=== PATIENT | female | born 1995 | race Caucasian/White ===

== ENCOUNTER 2019-03-26 22:30 | Emergency (ER) | payer MEDICAID ==
[~2019-03-26] VITALS: Ht 149.9 cm; Wt 71.1 kg
[2019-03-26 22:48] VITALS: Ht 149.9 cm; Wt 71.1 kg
[2019-03-27] MEDS ORDERED: BACITRACIN 0.9 GM OINT TOP ONE (02:00)
[2019-03-27] MEDS ORDERED: LIDOCAINE 1% (MDV) 20 ML INJ SC ONE (02:00)
--- NOTE | 2019-03-27 02:48 | ERD ---
ER Documentation Chief Complaint Chief Complaint LAC TO FOREHEAD S/P FALL IN BATHROOM HPI This is a 23-year-old previously healthy female who is presenting with a left forehead laceration sustained after a mechanical fall in the bathroom. The patient reportedly tripped and fell and hit her head against a glass in the bathroom. She does endorse pain around the laceration, but she otherwise denies any other headache. She denies any vision changes. She denies any neck or back pain. She denies any chest pain or trouble breathing. She denies abdominal pain. She denies any focal deficits. She denies any other trauma or injury. She does not endorse any alleviating or exacerbating factors. The patient denies feeling sick recently. The patient denies fever or chills. The patient has had no headache or vision changes. The patient does not endorse neck or back pain. The patient denies lightheadedness or dizziness. The patient has had no chest pain or trouble breathing. The patient denies nausea or vomiting. The patient denies abdominal pain. The patient denies changes to bowel movements or urination. The patient has had no focal deficits. The patient has had no weakness or numbness or tingling to the face or extremities. ROS All systems reviewed and are negative except as per history of present illness. Allergies Allergies: Coded Allergies: No Known Allergy (Unverified , 03/26/19) PMhx/Soc Medical and Surgical Hx: pt denies Medical Hx, pt denies Surgical Hx History of Surgery: No Hx Neurological Disorder: No Hx Respiratory Disorders: No Hx Cardiac Disorders: No Hx Psychiatric Problems: No Hx Miscellaneous Medical Probl: No Hx Alcohol Use: No Hx Substance Use: No Hx Tobacco Use: No Smoking Status: Never smoker FmHx Family History: No diabetes Physical Exam Vitals Vital Signs Date Temp Pulse Resp B/P (MAP) Pulse Ox O2 O2 Flow FiO2 Time Delivery Rate 03/26/19 99.3 86 18 109/60 98 22:48 (76) Physical Exam Const: No apparent distress, well-developed, well-nourished Head: Normocephalic. 5 cm curvilinear laceration to the forehead. No dale sign. Eyes: Normal Conjunctiva. Extraocular movements intact. Pupils equal, round and reactive to light. No raccoon eyes ENT: Normal External Ears, Nose and Mouth. Neck: No midline spinal tenderness. No step-offs or deformities. Full range of motion. No meningismus. Resp: Clear to auscultation bilaterally, No wheezes, rales or rhonchi Cardio: Regular rate and rhythm. No murmurs, rubs or gallops Abd: Soft, non tender, non distended. Normal bowel sounds Skin: No petechiae or rashes Back: No midline tenderness. No step-offs or deformities. No CVA tenderness Ext: No cyanosis, or edema Neur: Awake and alert, oriented 4. Cranial nerves intact. No facial droop. Normal strength, sensation and coordination. Psych: Normal Mood and Affect Results 24 hrs Current Medications Medications Dose Sig/Hue Start Time Status Last (Trade) Ordered Route PRN Stop Time Admin Dose Reason Admin Bacitracin 1 applic ONCE ONCE 03/27/19 DC (Bacitracin TOP 02:00 03/27/19 Oint (Ud)) 02:01 Lidocaine 8 ml ONCE ONCE 03/27/19 DC (Xylocaine SC 02:00 03/27/19 1% (Mdv) 20 02:01 ml) Procedures/MDM MDM The patient presents after a forehead laceration sustained after a mechanical fall. The patient does not endorse a history concerning for syncope. She did sustain a laceration that was repaired in the emergency department without complication. Please see procedure note below. The patient was evaluated fully without evidence of emergent posttraumatic pathology. The patient has no focal deficits. I've low suspicion for intracranial pathology. I have low suspicion for cerebral ischemia or intracranial hemorrhage. The patient has no cervical spine tenderness. He can move his neck in all directions without any pain. As stated above, he does not have any focal deficits. He is not altered or intoxicated. He does not have any distracting injuries. The patient's cervical spine was clinically cleared using the Nexus C-spine rule. The patient does not have any saddle anesthesia. He has not been incontinent of urine or stool. He has not had any retention of urine or stool. I have low suspicion for spinal cord injury. There is no cardiothoracic or abdominal injury. There is no evidence of any pen etrating or extremity injuries. TREATMENT/DISPOSITION The patient required a tetanus shot in the emergency department. LACERATION REPAIR Performer: Myself Anesthesia: 1% lidocaine without epinephrine locally Location: Forehead Tendon/Joint/Nerves: No injury Foreign body: None detected after copious irrigation and exploration Technique: 7 Simple Interrupted Sutures Complexity: No subcutaneous sutures/mucosal repair/edge excision Post Closure Length: 5 cm Patient's bleeding was easily controlled in the department. No evidence of anemia, compartment syndrome, neurologic injury, vascular injury, open joint, tendon laceration, or foreign body. Patient is appropriate for outpatient follow up. 48 hour wound check recommended. Scar minimization instructions given. DISCHARGE Upon reevaluation of the patient, symptoms have improved. No emergent diagnoses were identified. At this time, I feel that the patient stable for discharge. The patient was instructed to follow-up with a primary care physician in 1-3 days. The patient will be given strict precautions with which to return to the emergency department. Prescriptions: None Disclaimer: Inadvertent spelling and grammatical errors are likely due to EHR/dictation software use and do not reflect on the overall quality of patient care. Note that the electronic time recorded on this note does not necessarily reflect the actual time of the patient encounter. Departure Diagnosis: Primary Impression: Forehead laceration Encounter type: initial encounter Qualified Codes: S01.81XA - Laceration without foreign body of other part of head, initial encounter Additional Impressions: Fall from ground level Head trauma Encounter type: initial encounter Qualified Codes: S09.90XA - Unspecified injury of head, initial encounter Patient Instructions: Fall Prevention, Head Trauma (Traumatic Brain Injury), Laceration, Face (Suture Or Tape) Additional Instructions: Thank you for for coming to [facility] for your care today. Please ask your nurse or provider if you have questions about your care today and do not leave until all your questions have been answered. Please use any medications given as directed and follow-up with your doctor (or the doctor you were referred to) in the next 1-3 days. If you do not have a primary care doctor you may follow up at the [facility] [place] [place] or [facility] (listed below). You may also use motrin and tylenol as needed for fever and/or pain unless instructed otherwise by your provider or nurse. Indications for more urgent follow-up have been discussed, but you may return to the Emergency Department at ANY time for any worrisome or worsening symptoms. If you have abdominal pain, please know that no test or exam you received is perfect and you should follow up within 8 hours for continued pain. If you had any imaging studies today, such as an X-Ray or CT Scan, these studies will be reviewed later by a radiologist. You will be called if there are important findings that were not identified today, so make sure the contact information you provided at registration is correct. If you received any narcotic pain control medicine today, such as Vicodin, Morphine or Dilaudid, your coordination and judgment may be affected for a number of hours. Please do not drive or operate heavy machinery, and you may want someone to assist you at home. If you were given a prescription for narcotic medication, be aware that it is very addictive- use sparingly and only if necessary. PLEASE SEEK FURTHER EVALUATION AND MANAGEMENT AT YOUR DOCTORS OFFICE WITHIN THE NEXT 1-3 DAYS. IT IS YOUR RESPONSIBILITY TO MAKE AN APPOINTMENT FOR FOLOW-UP CARE. IF YOU HAVE A PRIMARY DOCTOR, PLEASE CALL THEIR OFFICE TO SCHEDULE AN APPOINTMENT FOR FOLLOW UP. IF YOU DO NOT HAVE A PRIMARY DOCTOR YOU CAN CALL OUR PHYSICIAN REFERRAL HOTLINE AT IF YOU CAN NOT AFFORD TO SEE A PHYSICIAN YOU CAN CHOSE FROM THE FOLLOWING [facility] CLINICS: [facility] [address] [facility]. [facility] [address] [facility] [facility] [address] [facility] [facility] [address] [facility] [facility] [address] [facility]. [facility]. [address] HUGO BLAIR MD Mar 27, 2019 02:48
[2019-03-27] MEDS ORDERED: DIPHTH/TET/ACEL PERTUSS (ADULT) 0.5 ML VIAL IM* ONE (03:00)
[2019-03-27 03:02] VITALS: BP 108/67; PULSE 78; RESP 18
== END 2019-03-27 03:00 | disposition home or self-care (01) ==
LOC: FTE 22:30
DX: S01.81XA Laceration without foreign body of other part of head, initial encounter (principal); W01.0XXA Fall on same level from slipping, tripping and stumbling without subsequent striking against object, initial encounter; Y92.002 Bathroom of unspecified non-institutional (private) residence as the place of occurrence of the external cause; Z23 Encounter for immunization
CPT/HCPCS: 12013; 90471; 90715; Z7502; Z7610

== ENCOUNTER → 2019-03-29 | Emergency (ER) | payer MEDICAID ==
[~2019-03-29] VITALS: Ht 152.4 cm; Wt 78.2 kg
[2019-03-29 10:01] VITALS: BP 107/73; PULSE 73; RESP 18; Ht 152.4 cm; Wt 78.2 kg
--- NOTE | 2019-03-29 10:17 | ERD ---
ER Documentation Chief Complaint Chief Complaint forehead wound check HPI This is a 23-year-old female who presents to the ED for wound recheck. Patient was seen here 3 days ago for laceration to her forehead sustained after mechanical trip and fall in the bathroom. Laceration was repaired with 7 sutures. Patient returns again today for wound recheck. She denies any wound discharge. Denies any fevers or chills. Denies any increasing pain. Denies any new or other injuries. ROS All systems reviewed and are negative except as per history of present illness. Allergies Allergies: Coded Allergies: No Known Allergy (Unverified , 03/26/19) PMhx/Soc History of Surgery: No Anesthesia Reaction: No Hx Neurological Disorder: No Hx Respiratory Disorders: No Hx Cardiac Disorders: No Hx Psychiatric Problems: No Hx Miscellaneous Medical Probl: No Hx Alcohol Use: No Hx Substance Use: No Hx Tobacco Use: No Smoking Status: Never smoker Physical Exam Vitals Vital Signs Date Temp Pulse Resp B/P (MAP) Pulse Ox O2 O2 Flow FiO2 Time Delivery Rate 03/29/19 98.2 73 18 107/73 99 10:01 (84) Physical Exam Const: No acute distress Head: + 5 cm curvilinear laceration to mid forehead, well-healing, [address], no dehiscence. Eyes: Normal Conjunctiva ENT: Normal External Ears, Nose and Mouth. Neck: Full range of motion. No meningismus. Skin: No petechiae or rashes Neur: Awake and alert Psych: Normal Mood and Affect Procedures/MDM MEDICAL DECISION MAKIN-year-old female presents for wound recheck status post laceration repair 3 days ago. Wound is healing well. No signs of ischemic necrosis, abscess, sepsis or other deep space infection. Patient was advised to return here in 3 days for suture removal. Pt is stable for outpatient follow up and management. Strict return precautions given. PRESCRIPTIONS: None SPECIALIST FOLLOW UP RECOMMENDED: None Patient has been advised to follow up with primary care in 1-2 days. Departure Diagnosis: Primary Impression: Encounter for wound re-check Condition: Stable Patient Instructions: Wound Check, Lac F/U (No Infection) Referrals: COMMUNITY CLINICS YOU HAVE RECEIVED A MEDICAL SCREENING EXAM AND THE RESULTS INDICATE THAT YOU DO NOT HAVE A CONDITION THAT REQUIRES URGENT TREATMENT IN THE EMERGENCY DEPARTMENT. FURTHER EVALUATION AND TREATMENT OF YOUR CONDITION CAN WAIT UNTIL YOU ARE SEEN IN YOUR DOCTORS OFFICE WITHIN THE NEXT 1-2 DAYS. IT IS YOUR RESPONSIBILITY TO MAKE AN APPOINTMENT FOR FOLOW-UP CARE. IF YOU HAVE A PRIMARY DOCTOR --you should call your primary doctor and schedule an appointment IF YOU DO NOT HAVE A PRIMARY DOCTOR YOU CAN CALL OUR PHYSICIAN REFERRAL HOTLINE AT IF YOU CAN NOT AFFORD TO SEE A PHYSICIAN YOU CAN CHOSE FROM THE FOLLOWING [facility] [address] [facility] [address] [facility] [address] [facility] [address] [facility] [address] [facility]. [facility] [address] [facility]. [facility] YOU HAVE RECEIVED A MEDICAL SCREENING EXAM AND THE RESULTS INDICATE THAT YOU DO NOT HAVE A CONDITION THAT REQUIRES URGENT TREATMENT IN THE EMERGENCY DEPARTMENT. FURTHER EVALUATION AND TREATMENT OF YOUR CONDITION CAN WAIT UNTIL YOU ARE SEEN IN YOUR DOCTORS OFFICE WITHIN THE NEXT 1-2 DAYS. IT IS YOUR RESPONSIBILITY TO MAKE AN APPOINTMENT FOR FOLOW-UP CARE. IF YOU HAVE A PRIMARY DOCTOR --you should call your primary doctor and schedule and appointment IF YOU DO NOT HAVE A PRIMARY DOCTOR YOU CAN CALL OUR PHYSICIAN REFERRAL HOTLINE AT . IF YOU CAN NOT AFFORD TO SEE A PHYSICIAN YOU CAN CHOSE FROM THE FOLLOWING [facility] INSTITUTIONS: [facility] [address] [place] [address] [facility] [address] [place] [address] [facility] [address] [place] [address] Additional Instructions: Return here in another 3 days or so to get the sutures removed. You can keep it uncovered until then. Return here sooner if you notice any discharge, fevers, increasing pain or any other concerns. CHRIS MERCADO PA-C Mar 29, 2019 10:17
== END | disposition home or self-care (01) ==
LOC: FTE 09:58
DX: Z48.01 Encounter for change or removal of surgical wound dressing (principal)
CPT/HCPCS: 99281